=== PATIENT | male | born 1980 | race Caucasian/White ===

== ENCOUNTER 2021-01-06 17:24 | Inpatient (IN) ==
[2021-01-06] MEDS ORDERED: *HR* FentaNYL (PF) 100 MCG/2 ML VIAL IVP ONE ×2 (18:02→19:01)
[2021-01-06] MEDS ORDERED: Ondansetron 4 MG/2 ML VIAL IVP ONE ×2 (18:02→19:03)
[2021-01-06] MEDS ORDERED: 0.9 % Sodium Chloride 1,000 ML IVC ONE (18:03)
[2021-01-06] MEDS ORDERED: Isovue-370 500 ML BOTTLE IVP ONE (18:08)
[2021-01-06 18:29] LABS: Eosinophils % 1.1 %; Hemoglobin 7.2 g/dL (12.9-16.9); Lymphocytes # 0.9 K/mcL (0.6-4.6); Lymphocytes % 49.4 %; Mean Corpuscular HGB Conc 34.3 g/dL (31.6-35.5); Mean Corpuscular Hemoglobin 39.1 pg (28.0-33.3); Mean Corpuscular Volume 114.1 fL (83.0-100.0); Mean Platelet Volume 11.8 fL (9.4-12.4); Monocytes % 2.3 %; Red Blood Count 1.84 M/mcL (4.19-5.50); Segmented Neutrophils % 47.2 %; White Blood Count 1.8 K/mcL (4.3-11.1)
[2021-01-06 18:30] LABS: Neutrophils # 0.9 K/mcL (1.6-8.9)
[2021-01-06 18:33] LABS: Alanine Aminotransferase 36 Units/L (7-52); Albumin 3.8 g/dL (3.5-5.7); Albumin/Globulin Ratio 1.2 (1.1-2.2); Alkaline Phosphatase 75 Units/L (34-104); Amylase 40 Units/L (29-103); Aspartate Amino Transferase 28 Units/L (13-39); BUN/Creatinine Ratio 19 (6-26); Bilirubin,Indirect 0.4 mg/dL (0.0-1.0); Bilirubin,Total 0.4 mg/dL (0.3-1.0); Blood Urea Nitrogen 15 mg/dL (6-20); Calcium 8.8 mg/dL (8.6-10.3); Carbon Dioxide 24 mEq/L (23-29); Chloride 109 mEq/L (98-107); Globulin 3.1 g/dL (2.4-3.5); Glucose 92 mg/dL (70-105); Lipase 26 Units/L (11-82); Osmolality,Calculated 292 (280-300); Potassium 3.4 mEq/L (3.5-5.1); Sodium 141 mEq/L (136-145); Total Protein 6.9 g/dL (6.4-8.9); eGFR For African Americans > 60 (> 60); eGFR For Non-African Americans > 60 (> 60)
[2021-01-06 18:35] LABS: Platelet Count 10 K/mcL (140-400)
[2021-01-06 18:36] LABS: Macrocytosis Present (Not Present)
[2021-01-06 18:41] LABS: Bilirubin,Urine Negative (Negative); Blood,Urine Large (Negative); Calcium Oxalate Crystals,Urine Present; Clarity,Urine Ex.Turbid (Clear); Color,Urine Light-Orange (Yellow); Glucose,Urine (UA) Normal (Normal); Ketones,Urine Trace mg/dL (Negative); Leukocyte Esterase,Urine Small (Negative); Mucus,Urine Many per lpf (None-Few); Nitrite,Urine Negative (Negative); PH,Urine 6.5 pH Units (5.0-8.0); Protein,Urine >=300 mg/dL (Neg-Trace); RBC,Urine TNTC per hpf (0-3); Specific Gravity,Urine > 1.030 (1.010-1.025); WBC,Urine TNTC per hpf (0-3)
[2021-01-06 18:51] LABS: Amphetamine Screen,Urine Negative ng/mL (Cutoff=1000); Barbiturate Screen,Urine Negative ng/mL (Cutoff=200); Benzodiazepines Screen,Urine Negative ng/mL (Cutoff=200); Cannabinoid Screen,Urine Positive ng/mL (Cutoff = 50); Cocaine Screen,Urine Negative ng/mL (Cutoff= 300); Opiate Screen,Urine Negative ng/mL (Cutoff=300); Phencyclidine Screen,Urine Negative ng/mL (Cutoff=25)
[2021-01-06] MEDS ORDERED: cefTRIAXone 1,000 MG in 0.9 % Sodium Chloride Mini Bag 100 ML IVPB ONE (19:03)
[2021-01-06] MEDS ORDERED: Metoclopramide 10 MG/2 ML VIAL IVP ONE (20:00)
[2021-01-06] MEDS ORDERED: *HR* HYDROmorphone (PF) 1 MG/ML SYRINGE IVP ONE (20:01)
[2021-01-06] MEDS ORDERED: Ondansetron 4 MG/2 ML VIAL IVP PRN (22:34)
[2021-01-06] MEDS ORDERED: Naloxone 0.4 MG/ML INJ IVP PRN (22:34)
[2021-01-06] MEDS ORDERED: Acetaminophen 325 MG TABLET PO PRN (22:34)
[2021-01-06] MEDS ORDERED: *HR* HYDROcodone/Acet 5/325 mg TABLET PO PRN (22:42)
[2021-01-06] MEDS ORDERED: *HR* OxyCODONE/APAP 5/325 TABLET PO PRN (22:42)
[2021-01-07] MEDS ORDERED: 0.9 % Sodium Chloride 250 ML ONE ×3 (00:07→10:17)
[2021-01-07 05:42] LABS: Hematocrit 17.6 % (37.5-50.1); Immature Platelets 2.6 % (1.1-6.1); Lymphocytes # 0.6 K/mcL (0.6-4.6); Lymphocytes % 48.4 %; Mean Corpuscular HGB Conc 34.1 g/dL (31.6-35.5); Mean Corpuscular Hemoglobin 39.7 pg (28.0-33.3); Mean Corpuscular Volume 116.6 fL (83.0-100.0); Mean Platelet Volume 10.7 fL (9.4-12.4); Monocytes % 3.2 %; Neutrophils # 0.6 K/mcL (1.6-8.9); Nucleated Red Blood Cells 1.6 /100 WBC (0); Red Blood Count 1.51 M/mcL (4.19-5.50); Segmented Neutrophils % 48.4 %; White Blood Count 1.3 K/mcL (4.3-11.1)
[2021-01-07 05:57] LABS: Platelet Count 31 K/mcL (140-400)
[2021-01-07 06:00] LABS: Alanine Aminotransferase 28 Units/L (7-52); Albumin 3.4 g/dL (3.5-5.7); Albumin/Globulin Ratio 1.4 (1.1-2.2); Alkaline Phosphatase 67 Units/L (34-104); Aspartate Amino Transferase 22 Units/L (13-39); BUN/Creatinine Ratio 22 (6-26); Bilirubin,Total 0.4 mg/dL (0.3-1.0); Blood Urea Nitrogen 15 mg/dL (6-20); Calcium 8.2 mg/dL (8.6-10.3); Carbon Dioxide 25 mEq/L (23-29); Chloride 110 mEq/L (98-107); Globulin 2.5 g/dL (2.4-3.5); Glucose 103 mg/dL (70-105); Osmolality,Calculated 293 (280-300); Potassium 3.3 mEq/L (3.5-5.1); Sodium 141 mEq/L (136-145); Total Protein 5.9 g/dL (6.4-8.9); eGFR For African Americans > 60 (> 60); eGFR For Non-African Americans > 60 (> 60)
[2021-01-07 06:17] LABS: Anisocytosis 2+ (Not Present); Hypochromasia Present (Not Present); Platelet Estimate Marked Decrease (Normal)
[2021-01-07 06:18] LABS: Macrocytosis Present (Not Present)
[2021-01-07] MEDS ORDERED: EPINEPHrine 1 MG/ML VIAL SQ PRN ×2 (09:00→19:22)
[2021-01-07] MEDS ORDERED: cefTRIAXone 1,000 MG in Water for inj. (sterile) 10 ML IVP SCH (09:00)
[2021-01-07] MEDS ORDERED: Hydrocortisone Sodium Succ 100 MG/2 ML VIAL IVP PRN ×2 (09:00→19:22)
[2021-01-07 14:42] LABS: Hematocrit 22.6 % (37.5-50.1); Hemoglobin 7.9 g/dL (12.9-16.9); Immature Platelets 4.1 % (1.1-6.1); Lymphocytes # 0.9 K/mcL (0.6-4.6); Lymphocytes % 67.7 %; Mean Corpuscular Hemoglobin 36.9 pg (28.0-33.3); Mean Corpuscular Volume 105.6 fL (83.0-100.0); Mean Platelet Volume 10.8 fL (9.4-12.4); Neutrophils # 0.4 K/mcL (1.6-8.9); Red Blood Count 2.14 M/mcL (4.19-5.50); Red Cell Distribution Width 22.7 % (11.5-14.5); Segmented Neutrophils % 29.3 %; White Blood Count 1.3 K/mcL (4.3-11.1)
[2021-01-07 14:49] LABS: Adenovirus Not Detected (Not Detect); Coronavirus 229E Not Detected (Not Detect); Coronavirus HKU1 Not Detected (Not Detect); Coronavirus NL63 Not Detected (Not Detect); Coronavirus OC43 Not Detected (Not Detect); Human Metapneumovirus Not Detected (Not Detect); Human Rhinovirus/Enterovirus Not Detected (Not Detect); Influenza A Subtype 2009 H1 Not Detected (Not Detect); Influenza B Not Detected (Not Detect); Parainfluenza Virus 1 Not Detected (Not Detect); Parainfluenza Virus 2 Not Detected (Not Detect); Parainfluenza Virus 3 Not Detected (Not Detect); Parainfluenza Virus 4 Not Detected (Not Detect); Respiratory Syncytial Virus Not Detected (Not Detect); SARS-CoV-2 Not Detected (Not Detect)
[2021-01-07 14:50] LABS: Bordetella Pertussis Not Detected (Not Detect); Chlamydophila pneumoniae Not Detected (Not Detect); Mycoplasma pneumoniae Not Detected (Not Detect)
[2021-01-07 15:14] LABS: Platelet Count 25 K/mcL (140-400)
[2021-01-07 15:17] LABS: Anisocytosis 2+ (Not Present)
[2021-01-07 15:18] LABS: Macrocytosis Present (Not Present)
[2021-01-07 15:19] LABS: Platelet Estimate Marked Decrease (Normal)
[2021-01-07] MEDS ORDERED: Lidocaine -MPF 4% 5 ML AMPUL ONE (17:54)
[2021-01-07] MEDS ORDERED: Ondansetron 4 MG/2 ML VIAL ONE (17:54)
[2021-01-07] MEDS ORDERED: *HR* Propofol 200 MG/20 ML VIAL IVP ONE ×2 (17:54→18:29)
[2021-01-07] MEDS ORDERED: *HR* FentaNYL (PF) 100 MCG/2 ML VIAL ONE ×3 (17:54→18:29)
[2021-01-07] MEDS ORDERED: Lidocaine -MPF 2% 2 ML VIAL ONE (17:54)
[2021-01-07] MEDS ORDERED: Isovue-300 50ML VIAL ONE (17:59)
[2021-01-07] MEDS ORDERED: *HR* Midazolam HCl 2 MG/2 ML VIAL ONE (18:29)
[2021-01-07] MEDS ORDERED: Naloxone 0.4 MG/ML INJ IVP PRN (19:22)
[2021-01-07] MEDS ORDERED: Acetaminophen 325 MG TABLET PO PRN (19:22)
[2021-01-07] MEDS: *HR* HYDROcodone/Acet 5/325 mg TABLET PO PRN (20:30)
[2021-01-07] MEDS: *HR* OxyCODONE/APAP 5/325 TABLET PO PRN (22:49)
[2021-01-08 01:24] LABS: Immature Reticulocyte % 17.4 % (11.0-38.0); Retculocyte # 0.03 M/mcL (0.05-0.10); Reticulocyte % 1.3 % (1.6-2.8)
[2021-01-08 01:25] LABS: Hematocrit 22.5 % (37.5-50.1); Hemoglobin 7.8 g/dL (12.9-16.9); Immature Platelets 3.4 % (1.1-6.1); Lymphocytes # 0.4 K/mcL (0.6-4.6); Mean Corpuscular HGB Conc 34.7 g/dL (31.6-35.5); Mean Corpuscular Volume 106.6 fL (83.0-100.0); Mean Platelet Volume 10.4 fL (9.4-12.4); Monocytes % 1.8 %; Neutrophils # 0.7 K/mcL (1.6-8.9); Red Blood Count 2.11 M/mcL (4.19-5.50); Red Cell Distribution Width 23.2 % (11.5-14.5); Segmented Neutrophils % 62.2 %; White Blood Count 1.1 K/mcL (4.3-11.1)
[2021-01-08 01:30] LABS: Platelet Count 24 K/mcL (140-400)
[2021-01-08 01:45] LABS: BUN/Creatinine Ratio 22 (6-26); Blood Urea Nitrogen 14 mg/dL (6-20); Calcium 8.5 mg/dL (8.6-10.3); Carbon Dioxide 24 mEq/L (23-29); Chloride 109 mEq/L (98-107); Glucose 173 mg/dL (70-105); Magnesium 2.1 mg/dL (1.6-2.6); Osmolality,Calculated 291 (280-300); Phosphorous 2.6 mg/dL (2.7-4.5); Potassium 3.8 mEq/L (3.5-5.1); Sodium 138 mEq/L (136-145); eGFR For African Americans > 60 (> 60); eGFR For Non-African Americans > 60 (> 60)
[2021-01-08 01:54] LABS: Anisocytosis 2+ (Not Present); Macrocytosis Present (Not Present); Platelet Estimate Marked Decrease (Normal)
[2021-01-08] MEDS: *HR* OxyCODONE/APAP 5/325 TABLET PO PRN ×2 (06:34→15:04)
[2021-01-08] MEDS: Ondansetron 4 MG/2 ML VIAL IVP PRN ×2 (06:38→16:10)
[2021-01-08] MEDS ORDERED: cefTRIAXone 1,000 MG in Water for inj. (sterile) 10 ML IVP SCH (09:00)
[2021-01-08] MEDS: 0.9 % Sodium Chloride 1,000 ML IVC SCH (10:04)
[2021-01-08] MEDS: Cefepime HCl 2,000 MG in Water for inj. (sterile) 20 ML IVP SCH ×2 (10:09→16:04)
[2021-01-08] MEDS: *HR* HYDROcodone/Acet 5/325 mg TABLET PO PRN (13:24)
[2021-01-08] MEDS ORDERED: *HR* HYDROmorphone (PF) 1 MG/ML SYRINGE IVP ONE (15:57)
[2021-01-08] MEDS ORDERED: Isovue-370 500 ML BOTTLE IVP ONE (15:59)
[2021-01-08] MEDS ORDERED: Pantoprazole 40 MG VIAL IVP ONE (16:00)
[2021-01-08 16:28] LABS: Hematocrit 23.5 % (37.5-50.1); Hemoglobin 8.2 g/dL (12.9-16.9)
[2021-01-08] MEDS ORDERED: Acetaminophen IV 1,000 MG/100 ML BAG IVPB ONE (16:57)
[2021-01-08 21:03] LABS: Hematocrit 22.1 % (37.5-50.1); Hemoglobin 7.6 g/dL (12.9-16.9)
[2021-01-09] MEDS: Cefepime HCl 2,000 MG in Water for inj. (sterile) 20 ML IVP SCH ×2 (00:13→07:29)
[2021-01-09 05:10] LABS: Eosinophils % 0.7 %; Red Blood Count 2.16 M/mcL (4.19-5.50)
[2021-01-09 05:12] LABS: Hematocrit 22.8 % (37.5-50.1); Immature Platelets 4.7 % (1.1-6.1); Lymphocytes # 0.6 K/mcL (0.6-4.6); Lymphocytes % 45.9 %; Mean Corpuscular HGB Conc 35.1 g/dL (31.6-35.5); Mean Corpuscular Volume 105.6 fL (83.0-100.0); Mean Platelet Volume 11.6 fL (9.4-12.4); Monocytes # 0.1 K/mcL (0.0-1.3); Monocytes % 3.7 %; Neutrophils # 0.7 K/mcL (1.6-8.9); Segmented Neutrophils % 49.7 %; White Blood Count 1.4 K/mcL (4.3-11.1)
[2021-01-09] MEDS: Ondansetron 4 MG/2 ML VIAL IVP PRN (05:22)
[2021-01-09 05:28] LABS: BUN/Creatinine Ratio 15 (6-26); Blood Urea Nitrogen 11 mg/dL (6-20); Calcium 8.7 mg/dL (8.6-10.3); Carbon Dioxide 25 mEq/L (23-29); Chloride 107 mEq/L (98-107); Glucose 99 mg/dL (70-105); Magnesium 1.7 mg/dL (1.6-2.6); Osmolality,Calculated 287 (280-300); Phosphorous 3.2 mg/dL (2.7-4.5); Potassium 3.2 mEq/L (3.5-5.1); Sodium 139 mEq/L (136-145); eGFR For African Americans > 60 (> 60); eGFR For Non-African Americans > 60 (> 60)
[2021-01-09 05:29] LABS: Platelet Count 21 K/mcL (140-400)
[2021-01-09] MEDS ORDERED: Acetaminophen IV 1,000 MG/100 ML BAG IVPB ONE (05:40)
[2021-01-09 06:03] LABS: Platelet Estimate Marked Decrease (Normal)
[2021-01-09 06:04] LABS: Anisocytosis 2+ (Not Present); Macrocytosis Present (Not Present)
[2021-01-09] MEDS: *HR* OxyCODONE/APAP 5/325 TABLET PO PRN (07:29)
[2021-01-09] MEDS ORDERED: Pantoprazole 40 MG VIAL IVP SCH (08:00)
[2021-01-09 11:29] VITALS: BP 103/64
[2021-01-11 10:06] LABS: Calculi Mass 18 mg
== END 2021-01-09 13:20 | disposition home or self-care (01) | DRG 446 ==
LOC: 3ANU 17:24 → EMEROOARM 17:24 → 3ANU 23:18 → SUATTDRO 01-07 14:27
PROVIDERS: ADMIT Internal Medicine; ATTEND Internal Medicine